=== PATIENT | female | born 1995 | race Caucasian/White ===

== ENCOUNTER → 2023-03-29 | Outpatient (CLI) | payer MEDICAID ==
[~2023-03-29] MED LIST: AMOXICILLIN 8751 TAB PO; ASPIRIN 81M81 MG/TA2 PO; CEFTIN500 MG PO; FERROUSGLUC256MG; MOBIC15 MG PO; MOTRIN 800800 MG/TAB PO; NO HOME MEDICATIONS; NORCO 325 MG-51 TAB PO; PERCOCET 325 MG1 TA2 PO; PHENERGAN 25 TA25 MG PO; POLYMYXIN B/TRIMETH OD; PRENATAL TABLET PO; ROXICODONE 55 MG/TAB PO; TUMS ULTRA ST1000 MG PO; TUSS PO; ZOLOFT 50MG50 MG PO
== END ==
LOC: MHCPAIN 09:53
DX: M79.18 Myalgia, other site (principal); M54.6 Pain in thoracic spine
CPT/HCPCS: G0463

== ENCOUNTER → 2023-05-09 | Outpatient (CLI) | payer MEDICAID | LOC: MHCPAIN 10:53 | DX: M79.18 Myalgia, other site (principal); M54.6 Pain in thoracic spine | CPT/HCPCS: J0665; J1040 ==